=== PATIENT | female | born 1995 | race Caucasian/White ===

== ENCOUNTER 2021-03-22 09:41 | Emergency (ER) | payer OTHER ==
[2021-03-22 11:07] LABS: HEMOGLOBIN 13.2 gm/dl (12.3-15.3); RED BLOOD COUNT 4.38 M/UL (4.00-5.10); WHITE BLOOD COUNT 6.7 K/UL (4.5-11.0)
== END 2021-03-22 13:50 | disposition home or self-care (01) ==
LOC: ER1 09:41
PROVIDERS: Emergency Medicine
DX: O03.4 Incomplete spontaneous abortion without complication (principal)
CPT/HCPCS: 76817; 84702; 85025; 86900; 86901; 99284

== ENCOUNTER 2021-07-01 17:45 | Emergency (ER) | payer OTHER ==
[2021-07-01 19:00] LABS: HEMOGLOBIN 13.8 gm/dl (12.3-15.3); RED BLOOD COUNT 4.6 M/UL (4.00-5.10); WHITE BLOOD COUNT 10.5 K/UL (4.5-11.0)
[2021-07-01 19:23] LABS: BUN/CREATININE RATIO 12 (0-10)
== END 2021-07-02 00:35 | disposition home or self-care (01) ==
LOC: ER1 17:45
PROVIDERS: Physician Assistant Medical
DX: O20.0 Threatened abortion (principal); Z88.0 Allergy status to penicillin; Z3A.01 Less than 8 weeks gestation of pregnancy
CPT/HCPCS: 76817; 80053; 81001; 84702; 85025; 85610; 99284

== ENCOUNTER → 2021-12-04 | Outpatient (CLI) | payer OTHER | LOC: GENOP 15:36 | DX: O99.891 Other specified diseases and conditions complicating pregnancy (principal); M54.9 Dorsalgia, unspecified; R10.2 Pelvic and perineal pain; O36.8120 Decreased fetal movements, second trimester, not applicable or unspecified; Z3A.22 22 weeks gestation of pregnancy | CPT/HCPCS: 81001; G0463 ==

== ENCOUNTER → 2022-02-14 | Outpatient (CLI) | payer OTHER | LOC: HEART 5 02-06 08:00 | DX: R55 Syncope and collapse (principal) ==

== ENCOUNTER 2022-03-19 19:42 | Outpatient (CLI) | payer OTHER | END 2022-03-19 23:10 | disposition home or self-care (01) | LOC: GENOP 19:42 | DX: O47.02 False labor before 37 completed weeks of gestation, second trimester (principal); Z3A.22 22 weeks gestation of pregnancy | CPT/HCPCS: 81001; 84112; G0463 ==

== ENCOUNTER 2022-03-26 19:47 | Inpatient (IN) | payer OTHER ==
[~2022-03-26] VITALS: Ht 157.5 cm; Wt 74.8 kg
[2022-03-26 21:51] LABS: HEMOGLOBIN 10.9 gm/dl (12.3-15.3); RED BLOOD COUNT 4.09 M/UL (4.00-5.10); WHITE BLOOD COUNT 11.2 K/UL (4.5-11.0)
[2022-03-27] MEDS ORDERED: LEXAPRO5 MG PO (02:47)
[2022-03-27] MEDS ORDERED: IRON325 M1 PO (02:49)
[2022-03-27] MEDS ORDERED: CYCLOBENZAPRINE5 MG PO (02:49)
[2022-03-27] MEDS ORDERED: IBUPROFEN600 MG PO (11:54)
[2022-03-27] MEDS ORDERED: DOCUSATE SODIU100 MG PO (11:54)
[2022-03-28 06:21] LABS: HEMOGLOBIN 10.8 gm/dl (12.3-15.3)
[2022-03-28] MEDS ORDERED: CYCLOBENZAPRINE5 MG PO (13:52)
== END 2022-03-28 16:07 | disposition home or self-care (01) | DRG 807 ==
LOC: GENOP 19:47 → OB 03-27 00:03
PROVIDERS: Obstetrics & Gynecology; ADMIT Obstetrics & Gynecology
PROC: 10E0XZZ Delivery of Products of Conception, External Approach (ICD-10-PCS; principal; 2022-03-27)
PROC: 10H073Z Insertion of Monitoring Electrode into Products of Conception, Via Natural or Artificial Opening (ICD-10-PCS; 2022-03-27)
PROC: 10H07YZ Insertion of Other Device into Products of Conception, Via Natural or Artificial Opening (ICD-10-PCS; 2022-03-27)
PROC: 10907ZC Drainage of Amniotic Fluid, Therapeutic from Products of Conception, Via Natural or Artificial Opening (ICD-10-PCS; 2022-03-27)
DX: O99.344 Other mental disorders complicating childbirth (principal); Z37.0 Single live birth; F41.9 Anxiety disorder, unspecified; F32.A Depression, unspecified; Z87.81 Personal history of (healed) traumatic fracture; Z3A.38 38 weeks gestation of pregnancy; Z28.310 Unvaccinated for COVID-19; Z88.1 Allergy status to other antibiotic agents; Z88.0 Allergy status to penicillin
CPT/HCPCS: 36415; 81001; 82800; 85014; 85018; 85025; 90686; J2210; J2300; J2405